=== PATIENT | female | born 2000 | race Two or more races ===

== ENCOUNTER 2024-07-01 14:42 | Emergency (ER) | payer MEDICAID, OTHER ==
[~2024-07-01] VITALS: Ht 154.9 cm; Wt 62.9 kg
[2024-07-01 15:05] VITALS: BP 124/79; PULSE 74; RESP 16; O2SAT 100
== END 2024-07-01 18:00 | disposition left against medical advice (07) ==
LOC: ER 14:42
DX: N76.4 Abscess of vulva (principal); Z53.21 Procedure and treatment not carried out due to patient leaving prior to being seen by health care provider